=== PATIENT | female | born 1945 | race Two or more races ===

== ENCOUNTER 2022-01-19 12:29 | Inpatient (IN) | payer OTHER ==
[2022-01-19] MEDS ORDERED: BISMUTH SUBSALICYLATE 262 MG/15 ML BTL PO PRN (13:06)
[2022-01-19] MEDS ORDERED: MAGNESIUM CITRATE 300 ML BOTTLE PO PRN (13:06)
[2022-01-19] MEDS ORDERED: LORazepam 1 MG TABLET PO PRN (13:06)
[2022-01-19] MEDS ORDERED: ONDANSETRON *ODT* 4 MG TABLET SL PRN (13:06)
[2022-01-19] MEDS ORDERED: METHOCARBAMOL 500 MG TABLET PO PRN (13:06)
[2022-01-19] MEDS ORDERED: IBUPROFEN 400 MG TABLET (FP) PO PRN (13:06)
[2022-01-19] MEDS ORDERED: MAG HYDROX/AL HYDROX/SIMETH 30 ML UNIT-DOSE CUP PO PRN (13:06)
[2022-01-19] MEDS ORDERED: BENZOCAINE/MENTHOL (CHLORASEPTIC ) LOZENGE MM PRN (13:06)
[2022-01-19] MEDS ORDERED: MAGNESIUM HYDROX 2400MG/30ML ORAL SUSPENSION 30 ML CUP PO PRN (13:06)
[2022-01-19] MEDS ORDERED: NICOTINE 10 MG CARTRIDGE (INHALER) IH PRN (13:06)
[2022-01-19] MEDS ORDERED: LOPERAMIDE HCL 2 MG CAPSULE PO PRN (13:06)
[2022-01-19] MEDS ORDERED: DICYCLOMINE HCL 10 MG CAPSULE PO PRN (13:06)
[2022-01-19] MEDS ORDERED: ACETAMINOPHEN 325 MG TABLET (FP) PO PRN ×2 (13:06)
[2022-01-19 16:25] VITALS: BMI 25.3
[2022-01-19 17:09] LABS: HEMATOCRIT 37.2 % (32.4-45.2); HEMOGLOBIN 12.8 GM/dL (10.7-15.3); MCH 31.4 pg (25.7-33.7); MCHC 34.3 g/dl (32.0-36.0); MEAN CELL VOLUME 91.4 fl (80-96); MEAN PLT VOLUME 8.3 fl (7.5-11.1); PLATELET COUNT 245 10^3/uL (134-434); RBC 4.07 M/mm3 (3.60-5.2); RDW 12.9 % (11.6-15.6)
[2022-01-19 17:16] LABS: CALCIUM 9.4 mg/dL (8.5-10.1)
[2022-01-19 17:17] LABS: BLOOD UREA NITROGEN 22.4 mg/dL (7-18)
[2022-01-19 17:20] LABS: CREATININE 0.9 mg/dL (0.55-1.3)
[2022-01-19 17:21] LABS: BILIRUBIN,TOTAL 0.4 mg/dL (0.2-1); TOT PROT 7.7 g/dl (6.4-8.2)
[2022-01-19] MEDS: hydrOXYzine PAMOATE 25 MG CAPSULE (FP) PO SCH ×3 (18:08→22:01)
[2022-01-19] MEDS: LORazepam 1 MG TABLET PO SCH ×2 (18:08→22:02)
[2022-01-19] MEDS: NICOTINE 14 MG/24 HOURS TOPICAL PATCH TD SCH (18:12)
[2022-01-19] MEDS: PRENATAL VITAMINS W/ FOLIC ACID TABLET (FP) PO SCH (18:12)
[2022-01-19] MEDS: THIAMINE HCL 100 MG TABLET (FP) PO SCH (22:01)
[2022-01-19] MEDS: MELATONIN 5 MG TABLETS PO SCH (22:02)
[2022-01-20] MEDS: hydrOXYzine PAMOATE 25 MG CAPSULE (FP) PO SCH ×5 (06:35→22:13)
[2022-01-20] MEDS: LORazepam 1 MG TABLET PO SCH ×4 (06:35→22:13)
[2022-01-20] MEDS: SERTRALINE HCL 50 MG TABLET (FP) PO SCH (10:28)
[2022-01-20] MEDS: PRENATAL VITAMINS W/ FOLIC ACID TABLET (FP) PO SCH (10:28)
[2022-01-20] MEDS: amLODIPine BESYLATE 10 MG TABLET (FP) PO SCH (10:31)
[2022-01-20] MEDS: NICOTINE 14 MG/24 HOURS TOPICAL PATCH TD SCH (10:47)
[2022-01-20] MEDS: metFORMIN HCL 500 MG TABLET (FP) PO SCH (17:53)
[2022-01-20] MEDS: THIAMINE HCL 100 MG TABLET (FP) PO SCH (22:13)
[2022-01-20] MEDS: MELATONIN 5 MG TABLETS PO SCH (22:13)
[2022-01-21] MEDS: LORazepam 1 MG TABLET PO SCH ×4 (05:34→22:17)
[2022-01-21] MEDS: hydrOXYzine PAMOATE 25 MG CAPSULE (FP) PO SCH ×5 (05:35→22:16)
[2022-01-21] MEDS: metFORMIN HCL 500 MG TABLET (FP) PO SCH ×2 (08:46→18:55)
[2022-01-21] MEDS: NICOTINE 14 MG/24 HOURS TOPICAL PATCH TD SCH (10:13)
[2022-01-21] MEDS: PRENATAL VITAMINS W/ FOLIC ACID TABLET (FP) PO SCH (10:13)
[2022-01-21] MEDS: SERTRALINE HCL 50 MG TABLET (FP) PO SCH (10:13)
[2022-01-21] MEDS: amLODIPine BESYLATE 10 MG TABLET (FP) PO SCH (10:13)
[2022-01-21 16:08] LABS: SARS-CoV-2 NAA Not Detected (Not Detected)
[2022-01-21] MEDS ORDERED: cloNIDine HCL 0.1 MG TABLET PO PRN (16:23)
[2022-01-21] MEDS: THIAMINE HCL 100 MG TABLET (FP) PO SCH (22:16)
[2022-01-21] MEDS: MELATONIN 5 MG TABLETS PO SCH (22:16)
[2022-01-22] MEDS ORDERED: LORazepam 0.5 MG TABLET PO PRN
[2022-01-22] MEDS: LORazepam 0.5 MG TABLET PO SCH ×4 (05:58→22:18)
[2022-01-22] MEDS: hydrOXYzine PAMOATE 25 MG CAPSULE (FP) PO SCH ×5 (05:58→22:18)
[2022-01-22] MEDS: metFORMIN HCL 500 MG TABLET (FP) PO SCH ×2 (06:00→17:36)
[2022-01-22] MEDS: amLODIPine BESYLATE 10 MG TABLET (FP) PO SCH (10:10)
[2022-01-22] MEDS: PRENATAL VITAMINS W/ FOLIC ACID TABLET (FP) PO SCH (10:10)
[2022-01-22] MEDS: NICOTINE 14 MG/24 HOURS TOPICAL PATCH TD SCH (10:10)
[2022-01-22] MEDS: SERTRALINE HCL 50 MG TABLET (FP) PO SCH (10:10)
[2022-01-22] MEDS: MELATONIN 5 MG TABLETS PO SCH (22:18)
[2022-01-22] MEDS: THIAMINE HCL 100 MG TABLET (FP) PO SCH (22:18)
[2022-01-23] MEDS ORDERED: LORazepam 0.5 MG TABLET PO ONE (05:00)
[2022-01-23] MEDS: hydrOXYzine PAMOATE 25 MG CAPSULE (FP) PO SCH (05:22)
[2022-01-23] MEDS: metFORMIN HCL 500 MG TABLET (FP) PO SCH (07:02)
[2022-01-23 09:27] VITALS: BP 156/81; PULSE 76; TEMP 98
== END 2022-01-23 09:10 | disposition home or self-care (01) | DRG 897 ==
LOC: YASAS 12:29 → Y6N 16:52
PROVIDERS: ADMIT Allergy & Immunology; ATTEND Allergy & Immunology
PROC: HZ2ZZZZ Detoxification Services for Substance Abuse Treatment (ICD-10-PCS; principal; 2022-01-19)
DX: F13.230 Sedative, hypnotic or anxiolytic dependence with withdrawal, uncomplicated (principal); F19.282 Other psychoactive substance dependence with psychoactive substance-induced sleep disorder; F41.8 Other specified anxiety disorders; F32.A Depression, unspecified; I10 Essential (primary) hypertension; E11.9 Type 2 diabetes mellitus without complications; Z79.84 Long term (current) use of oral hypoglycemic drugs
CPT/HCPCS: 36415; 80053; 82962; 84132; 85027; 86780; 93005; 93010; C9803-CS; J0735; U0003; U0005